=== PATIENT | female | born 1930 | race Caucasian/White ===

== ENCOUNTER 2016-05-29 05:21 | Inpatient (IN) | payer MEDICARE, BC ==
[~2016-05-29 05:21] MED LIST: AMARYL1 MG PO; CALCIUM 500 +1 EAC3 PO; CARVEDILOL12.5 MG PO; DIFLUNISAL500 MG PO; FLEXERIL5 MG PO; FUROSEMIDE40 M1 PO; GABAPENTIN600 MG PO; LOSARTAN POTAS100 MG PO; LOVAZA1 GM PO; MINOXIDIL2.5 MG PO; MIRALAX17 G1 PO; NORCO 7.5/325 T1 TAB PO; PERCOCET 5MG/AP1 TAB PO; PRILOSEC20 MG PO; PROLIA60 MG/1 ML SQ
[2016-05-29 05:55] LABS: URINE APPEARANCE HAZY; URINE BILIRUBIN NEGATIVE (NEG); URINE BLOOD LARGE (NEG); URINE COLOR YELLOW; URINE GLUCOSE (UA) NEGATIVE (NEG); URINE KETONE NEGATIVE (NEG); URINE LEUKOCYTE ESTERASE POSITIVE (NEG); URINE NITRITE NEGATIVE (NEG); URINE PROTEIN MODERATE (NEG); URINE SPECIFIC GRAVITY 1.005 (1.003-1.030)
[2016-05-29 06:05] LABS: URINE AMORPHOUS 1+; URINE BACTERIA 1+
[2016-05-29 06:12] LABS: BASO % 0.3 % (0-2); EOS % 2.6 % (0-7); EOSINOPHIL ABSOLUTE COUNT 0.3 tho/cmm (0.0-0.7); HCT-HEMATOCRIT 38.8 % (34.0-49.0); HGB-HEMOGLOBIN 12.7 gm/dl (12.0-15.5); IMMATURE GRANULOCYTES ABSOLUTE 0.02 tho/cmm (0-0.03); IMMATURE GRANULOCYTES PERCENT 0.2 % (0-0.3); LYMPH % 22.7 % (20-45); LYMPH ABSOLUTE COUNT 2.4 tho/cmm (0.8-4.5); MCH (MEAN CORPUSCULAR HGB) 31.1 pg (28.0-32.0); MCHC MEAN CORPUSCULAR HGB CONC 32.7 % (32.0-36.0); MCV (MEAN CELL VOLUME) 94.9 fl (82.0-96.0); MEAN PLATELET VOLUME 11.8 cmc (9.4-12.4); MONO % 6.9 % (0-12); MONOCYTE ABSOLUTE COUNT 0.7 tho/cmm (0.0-1.2); NEUTROPHIL ABSOLUTE COUNT 7.1 tho/cmm (1.6-8.0); NEUTROPHIL-AUTOMATED 7.1 tho/cmm (1.6-8.0); NEUTROPHILS % 67.3 % (40-80); PLATELET COUNT 216 tho/cmm (150-450); RED BLOOD COUNT 4.09 mil/cmm (4.00-5.20); RED CELL DISTRIBUTION WIDTH 16.1 % (12.4-16.4); WHITE BLOOD COUNT 10.6 tho/cmm (4.0-10.0)
[2016-05-29] MEDS ORDERED: COUMADIN2.5 M1 PO (06:16)
[2016-05-29] MEDS ORDERED: COZAAR25 M1 PO (06:16)
[2016-05-29] MEDS ORDERED: ASPIRIN EC81 MG PO (06:17)
[2016-05-29] MEDS ORDERED: ZYLOPRIM100 M1 PO (06:17)
[2016-05-29] MEDS ORDERED: CARVEDILOL12.5 M1 PO (06:17)
[2016-05-29] MEDS ORDERED: LASIX40 M1 PO ×2 (06:18→06:31)
[2016-05-29] MEDS ORDERED: NEURONTIN600 M1 PO (06:18)
[2016-05-29] MEDS ORDERED: AMARYL1 M1 PO ×2 (06:18)
[2016-05-29] MEDS ORDERED: PROLIA60 MG/1 M1 SC (06:19)
[2016-05-29] MEDS ORDERED: PRILOSEC OTC20 M1 PO (06:19)
[2016-05-29] MEDS ORDERED: CITRACAL-VIT D1 EAC4 PO (06:19)
[2016-05-29] MEDS ORDERED: VITAMIN D32000 UNI3 PO (06:20)
[2016-05-29] MEDS ORDERED: SLOW-MAG71.5 MG PO (06:20)
[2016-05-29 06:21] LABS: INR 2.8 INR (0.9-1.1); PROTHROMBIN TIME 33.6 SECONDS (9.0-13.6)
[2016-05-29] MEDS ORDERED: COLACE100 M1 (06:21)
[2016-05-29] MEDS ORDERED: TYLENOL EXTRA500 M1 PO (06:21)
[2016-05-29] MEDS ORDERED: POTASSIUM PO (06:21)
[2016-05-29] MEDS ORDERED: HYDROCODON-ACE1 EA17 PO (06:21)
[2016-05-29] MEDS ORDERED: COLACE100 M1 PO (06:22)
[2016-05-29] MEDS ORDERED: MOBIC7.5 M2 PO (06:22)
[2016-05-29] MEDS ORDERED: CENTRUM SILVER1 EAC6 PO (06:22)
[2016-05-29 06:32] LABS: BLOOD UREA NITROGEN 31 mg/dl (6-24); CARBON DIOXIDE-VENOUS 28 mmol/L (22-32); CHLORIDE 106 mmol/l (96-110); CREATININE 1.04 mg/dl (0.50-1.10); GLUCOSE 168 mg/dL (70-110); SODIUM 139 mmol/L (135-145); eGFR VALUE FOR BLACK 58 mL/Min
[2016-05-29 06:37] LABS: ANION GAP 11 mmol/L (0-20); MAGNESIUM 2.2 mg/dl (1.3-2.6); POTASSIUM 5.9 mmol/L (3.7-5.1)
[2016-05-29 13:48] LABS: BASO % 0.2 % (0-2); EOS % 1.8 % (0-7); EOSINOPHIL ABSOLUTE COUNT 0.2 tho/cmm (0.0-0.7); HCT-HEMATOCRIT 30.9 % (34.0-49.0); HGB-HEMOGLOBIN 9.9 gm/dl (12.0-15.5); IMMATURE GRANULOCYTES ABSOLUTE 0.02 tho/cmm (0-0.03); IMMATURE GRANULOCYTES PERCENT 0.2 % (0-0.3); LYMPH % 16.3 % (20-45); LYMPH ABSOLUTE COUNT 1.9 tho/cmm (0.8-4.5); MCH (MEAN CORPUSCULAR HGB) 30.3 pg (28.0-32.0); MCV (MEAN CELL VOLUME) 94.5 fl (82.0-96.0); MEAN PLATELET VOLUME 10.7 cmc (9.4-12.4); MONO % 7.3 % (0-12); MONOCYTE ABSOLUTE COUNT 0.8 tho/cmm (0.0-1.2); NEUTROPHIL ABSOLUTE COUNT 8.5 tho/cmm (1.6-8.0); NEUTROPHIL-AUTOMATED 8.5 tho/cmm (1.6-8.0); NEUTROPHILS % 74.2 % (40-80); PLATELET COUNT 181 tho/cmm (150-450); RED BLOOD COUNT 3.27 mil/cmm (4.00-5.20); RED CELL DISTRIBUTION WIDTH 16.1 % (12.4-16.4); WHITE BLOOD COUNT 11.4 tho/cmm (4.0-10.0)
[2016-05-29 17:16] LABS: HCT-HEMATOCRIT 25.9 % (34.0-49.0); HGB-HEMOGLOBIN 8.4 gm/dl (12.0-15.5); MCV (MEAN CELL VOLUME) 94.5 fl (82.0-96.0); RED CELL DISTRIBUTION WIDTH 16.2 % (12.4-16.4)
[2016-05-29 23:24] LABS: HCT-HEMATOCRIT 28.9 % (34.0-49.0); HGB-HEMOGLOBIN 9.5 gm/dl (12.0-15.5); RED CELL DISTRIBUTION WIDTH 20.1 % (12.4-16.4)
[2016-05-29 23:38] LABS: MCV (MEAN CELL VOLUME) 88.1 fl (82.0-96.0)
[2016-05-30 05:39] LABS: BASO % 0.2 % (0-2); EOS % 2.1 % (0-7); EOSINOPHIL ABSOLUTE COUNT 0.2 tho/cmm (0.0-0.7); HCT-HEMATOCRIT 27.9 % (34.0-49.0); IMMATURE GRANULOCYTES ABSOLUTE 0.03 tho/cmm (0-0.03); IMMATURE GRANULOCYTES PERCENT 0.3 % (0-0.3); LYMPH % 21.1 % (20-45); LYMPH ABSOLUTE COUNT 2.3 tho/cmm (0.8-4.5); MCHC MEAN CORPUSCULAR HGB CONC 32.3 % (32.0-36.0); MCV (MEAN CELL VOLUME) 88.3 fl (82.0-96.0); MONO % 8.5 % (0-12); MONOCYTE ABSOLUTE COUNT 0.9 tho/cmm (0.0-1.2); NEUTROPHIL ABSOLUTE COUNT 7.3 tho/cmm (1.6-8.0); NEUTROPHIL-AUTOMATED 7.3 tho/cmm (1.6-8.0); NEUTROPHILS % 67.8 % (40-80); PLATELET COUNT 135 tho/cmm (150-450); RED BLOOD COUNT 3.16 mil/cmm (4.00-5.20); RED CELL DISTRIBUTION WIDTH 20.7 % (12.4-16.4); WHITE BLOOD COUNT 10.8 tho/cmm (4.0-10.0)
[2016-05-30 05:48] LABS: BLOOD UREA NITROGEN 24 mg/dl (6-24); CALCIUM 7.9 mg/dl (8.5-10.5); CARBON DIOXIDE-VENOUS 30 mmol/L (22-32); CHLORIDE 110 mmol/l (96-110); CREATININE 0.98 mg/dl (0.50-1.10); GLUCOSE 140 mg/dL (70-110); MCH (MEAN CORPUSCULAR HGB) 28.5 pg (28.0-32.0); eGFR VALUE FOR BLACK 62 mL/Min
[2016-05-30 06:03] LABS: ANION GAP 11 mmol/L (0-20); POTASSIUM 3.7 mmol/L (3.7-5.1); SODIUM 147 mmol/L (135-145)
[2016-05-30 06:14] LABS: PARTIAL THROMBOPLASTIN TIME 34 SECONDS (22-38)
[2016-05-30 06:44] LABS: INR 1.8 INR (0.9-1.1); PROTHROMBIN TIME 20.7 SECONDS (9.0-13.6)
[2016-05-30 11:16] LABS: HCT-HEMATOCRIT 28.6 % (34.0-49.0); HGB-HEMOGLOBIN 9.5 gm/dl (12.0-15.5); MCV (MEAN CELL VOLUME) 87.2 fl (82.0-96.0); RED CELL DISTRIBUTION WIDTH 20.5 % (12.4-16.4)
[2016-05-30 17:46] LABS: HGB-HEMOGLOBIN 8.8 gm/dl (12.0-15.5); MCV (MEAN CELL VOLUME) 88.2 fl (82.0-96.0); RED CELL DISTRIBUTION WIDTH 20.6 % (12.4-16.4)
[2016-05-30 23:11] LABS: HGB-HEMOGLOBIN 8.1 gm/dl (12.0-15.5); MCV (MEAN CELL VOLUME) 88.3 fl (82.0-96.0); RED CELL DISTRIBUTION WIDTH 20.1 % (12.4-16.4)
[2016-05-31 05:25] LABS: HCT-HEMATOCRIT 25.5 % (34.0-49.0); HGB-HEMOGLOBIN 8.2 gm/dl (12.0-15.5); MCV (MEAN CELL VOLUME) 88.5 fl (82.0-96.0); RED CELL DISTRIBUTION WIDTH 19.9 % (12.4-16.4)
[2016-05-31 17:49] LABS: HCT-HEMATOCRIT 28.5 % (34.0-49.0); HGB-HEMOGLOBIN 9.4 gm/dl (12.0-15.5); RED CELL DISTRIBUTION WIDTH 18.5 % (12.4-16.4)
[2016-06-01 06:49] LABS: HCT-HEMATOCRIT 26.7 % (34.0-49.0); HGB-HEMOGLOBIN 8.7 gm/dl (12.0-15.5); MCV (MEAN CELL VOLUME) 87.8 fl (82.0-96.0); RED CELL DISTRIBUTION WIDTH 18.6 % (12.4-16.4)
[2016-06-01] MEDS ORDERED: NATURAL VEGETA283 GM PO (09:35)
[2016-06-01] MEDS ORDERED: ELIQUIS5 M1 PO (09:36)
[2016-06-01] MEDS ORDERED: IRON325 M3 PO (09:37)
[2016-06-01] MEDS ORDERED: TYLENOL325 M2 PO ×2 (09:48→09:49)
== END 2016-06-01 11:00 | DRG 378 ==
LOC: EDMED 05:21 → CAR1 10:08 → PCUB 18:55
PROVIDERS: Emergency Medicine; Internal Medicine Gastroenterology; ADMIT Internal Medicine
PROC: 30233N1 Transfusion of Nonautologous Red Blood Cells into Peripheral Vein, Percutaneous Approach (ICD-10-PCS; principal; 2016-05-29)
PROC: 0DJD8ZZ Inspection of Lower Intestinal Tract, Via Natural or Artificial Opening Endoscopic (ICD-10-PCS; 2016-05-29)
DX: K57.31 Diverticulosis of large intestine without perforation or abscess with bleeding (principal); D62 Acute posthemorrhagic anemia; E11.40 Type 2 diabetes mellitus with diabetic neuropathy, unspecified; D68.9 Coagulation defect, unspecified; I48.2 Chronic atrial fibrillation; E66.9 Obesity, unspecified; E78.5 Hyperlipidemia, unspecified; I10 Essential (primary) hypertension; I25.10 Atherosclerotic heart disease of native coronary artery without angina pectoris; Z79.01 Long term (current) use of anticoagulants; Z95.2 Presence of prosthetic heart valve; M81.0 Age-related osteoporosis without current pathological fracture; M19.90 Unspecified osteoarthritis, unspecified site; M79.7 Fibromyalgia; Z79.82 Long term (current) use of aspirin; Z68.39 Body mass index [BMI] 39.0-39.9, adult
CPT/HCPCS: A9560; C9113; J1815; J3430; J7030; P9016; P9017

== ENCOUNTER 2016-07-28 19:42 | Inpatient (IN) | payer MEDICARE, BC ==
[~2016-07-28 19:42] MED LIST changes: +AMARYL1 M1 PO; +ASPIRIN EC81 MG PO; +CARVEDILOL12.5 M1 PO; +CENTRUM SILVER1 EAC6 PO; +CITRACAL-VIT D1 EAC4 PO; +COLACE100 M1; +COLACE100 M1 PO; +COUMADIN2.5 M1 PO; +COZAAR25 M1 PO; +ELIQUIS5 M1 PO; +HYDROCODON-ACE1 EA17 PO; +IRON325 M3 PO; +LASIX40 M1 PO; +MOBIC7.5 M2 PO; +NATURAL VEGETA283 GM PO; +NEURONTIN600 M1 PO; +POTASSIUM PO; +PRILOSEC OTC20 M1 PO; +PROLIA60 MG/1 M1 SC; +SLOW-MAG71.5 MG PO; +TYLENOL EXTRA500 M1 PO; +TYLENOL325 M2 PO; +VITAMIN D32000 UNI3 PO; +ZYLOPRIM100 M1 PO
[2016-07-28] MEDS ORDERED: ASPIRIN81 M1 PO (19:56)
[2016-07-28] MEDS ORDERED: POTASSIUM GLUC500 MG PO (20:12)
[2016-07-28 20:58] LABS: BASO % 0.1 % (0-2); HCT-HEMATOCRIT 36.8 % (34.0-49.0); HGB-HEMOGLOBIN 12.2 gm/dl (12.0-15.5); IMMATURE GRANULOCYTES ABSOLUTE 0.03 tho/cmm (0-0.03); IMMATURE GRANULOCYTES PERCENT 0.2 % (0-0.3); LYMPH % 9.8 % (20-45); LYMPH ABSOLUTE COUNT 1.4 tho/cmm (0.8-4.5); MCHC MEAN CORPUSCULAR HGB CONC 33.2 % (32.0-36.0); MCV (MEAN CELL VOLUME) 90.6 fl (82.0-96.0); MEAN PLATELET VOLUME 10.2 cmc (9.4-12.4); MONOCYTE ABSOLUTE COUNT 1.1 tho/cmm (0.0-1.2); NEUTROPHIL ABSOLUTE COUNT 11.5 tho/cmm (1.6-8.0); NEUTROPHIL-AUTOMATED 11.5 tho/cmm (1.6-8.0); NEUTROPHILS % 81.9 % (40-80); PLATELET COUNT 251 tho/cmm (150-450); RED BLOOD COUNT 4.06 mil/cmm (4.00-5.20)
[2016-07-28 21:03] LABS: INR 1.1 INR (0.9-1.1); PROTHROMBIN TIME 12.4 SECONDS (9.0-13.6)
[2016-07-28 21:10] LABS: ANION GAP 13 mmol/L (0-20); BLOOD UREA NITROGEN 32 mg/dl (6-24); CALCIUM 8.7 mg/dl (8.5-10.5); CARBON DIOXIDE-VENOUS 27 mmol/L (22-32); CHLORIDE 104 mmol/l (96-110); CREATININE 1.11 mg/dl (0.50-1.10); GLUCOSE 215 mg/dL (70-110); POTASSIUM 4.2 mmol/L (3.7-5.1); SODIUM 140 mmol/L (135-145); eGFR VALUE FOR BLACK 53 mL/Min
[2016-07-29 13:05] LABS: HCT-HEMATOCRIT 32.1 % (34.0-49.0); HGB-HEMOGLOBIN 10.5 gm/dl (12.0-15.5); MCV (MEAN CELL VOLUME) 90.4 fl (82.0-96.0); RED CELL DISTRIBUTION WIDTH 14.9 % (12.4-16.4)
[2016-07-29 19:13] LABS: HGB-HEMOGLOBIN 10.8 gm/dl (12.0-15.5); MCV (MEAN CELL VOLUME) 90.4 fl (82.0-96.0)
[2016-07-30 03:37] LABS: HCT-HEMATOCRIT 32.5 % (34.0-49.0); HGB-HEMOGLOBIN 10.5 gm/dl (12.0-15.5); MCV (MEAN CELL VOLUME) 92.1 fl (82.0-96.0); RED CELL DISTRIBUTION WIDTH 15.2 % (12.4-16.4)
[2016-07-30 11:24] LABS: HCT-HEMATOCRIT 33.7 % (34.0-49.0); HGB-HEMOGLOBIN 10.8 gm/dl (12.0-15.5); MCV (MEAN CELL VOLUME) 92.1 fl (82.0-96.0); RED CELL DISTRIBUTION WIDTH 15.1 % (12.4-16.4)
[2016-07-31 04:30] LABS: ANION GAP 11 mmol/L (0-20); BLOOD UREA NITROGEN 13 mg/dl (6-24); CALCIUM 8.5 mg/dl (8.5-10.5); CARBON DIOXIDE-VENOUS 24 mmol/L (22-32); CHLORIDE 110 mmol/l (96-110); CREATININE 0.62 mg/dl (0.50-1.10); GLUCOSE 167 mg/dL (70-110); POTASSIUM 3.8 mmol/L (3.7-5.1); SODIUM 141 mmol/L (135-145); eGFR VALUE FOR BLACK >90 mL/Min
[2016-07-31] MEDS ORDERED: MOVANTIK12.5 MG PO (11:35)
== END 2016-07-31 14:36 | DRG 378 ==
LOC: EDMED 19:42 → EMR2 23:08 → PCUA 07-29 00:30
PROVIDERS: Emergency Medicine; Specialist; ADMIT Internal Medicine
PROC: 0DJD8ZZ Inspection of Lower Intestinal Tract, Via Natural or Artificial Opening Endoscopic (ICD-10-PCS; principal; 2016-07-30)
DX: K57.31 Diverticulosis of large intestine without perforation or abscess with bleeding (principal); D62 Acute posthemorrhagic anemia; N17.9 Acute kidney failure, unspecified; I48.91 Unspecified atrial fibrillation; E11.9 Type 2 diabetes mellitus without complications; K64.8 Other hemorrhoids; K63.5 Polyp of colon; R91.8 Other nonspecific abnormal finding of lung field; I25.9 Chronic ischemic heart disease, unspecified; Z79.82 Long term (current) use of aspirin; Z95.2 Presence of prosthetic heart valve; Z79.84 Long term (current) use of oral hypoglycemic drugs; Z95.810 Presence of automatic (implantable) cardiac defibrillator; M19.90 Unspecified osteoarthritis, unspecified site; M79.7 Fibromyalgia; I10 Essential (primary) hypertension; E78.5 Hyperlipidemia, unspecified; E66.9 Obesity, unspecified; Z68.39 Body mass index [BMI] 39.0-39.9, adult; K59.09 Other constipation; T40.2X5A Adverse effect of other opioids, initial encounter; Z91.040 Latex allergy status; Z91.09 Other allergy status, other than to drugs and biological substances; Z88.8 Allergy status to other drugs, medicaments and biological substances
CPT/HCPCS: J1815; J2270; J7030; Q9967